=== PATIENT | male | born 1960 | race American Indian/Alaskan Native ===

== ENCOUNTER 2018-11-23 11:08 | Emergency (ER) | payer BC ==
--- NOTE | 2018-11-23 11:29 | Emergency Department Report ---
Blank Doc - Documentation Documentation: This is a 58-year-old male that presents with sore throat and URI symptoms. This initial assessment/diagnostic orders/clinical plan/treatment(s) is/are subject to change based on patient's health status, clinical progression and re- assessment by fellow clinical providers in the ED. Further treatment and workup at subsequent clinical providers discretion. Patient/guardians urged not to elope from the ED as their condition may be serious if not clinically assessed and managed. Initial orders include: 1- Patient sent to [facility] for further evaluation and treatment 2- CXR 3- strep swab
[2018-11-23 11:31] VITALS: BP 142/89
--- NOTE | 2018-11-23 12:07 | Emergency Department Report ---
Minor Respiratory - HPI Chief Complaint: Sore Throat Stated Complaint: SORE THROAT Time Seen by Provider: 11/23/18 11:28 Duration: 3 Days Pain Location: Throat, Chest Severity: moderate Minor Respiratory: Yes Sore Throat, Yes Able to Tolerate Fluids, Yes Cough, No Rhinorrhea, No Ear Pain, No Sick Contacts, No Hemoptysis, No Chest Pain, No Shortness of Breath, No Fever Other History: Patient is a pleasant 58-year-old male who comes to the ER complaining of "cough congestion and sore throat for several days. [id number] home remedies have not helped. On admission he is ambulatory and afebrile. He denies chest pain or shortness of breath. He states that his back hurts when he coughs ED Review of Systems ROS: Stated complaint: SORE THROAT Other details as noted in HPI Comment: All other systems reviewed and negative Constitutional: see HPI. denies: chills Eyes: as per HPI. denies: eye pain ENT: as per HPI, throat pain. denies: ear pain Respiratory: see HPI, cough Cardiovascular: denies: chest pain, palpitations, dyspnea on exertion, orthopnea Endocrine: denies: see HPI Gastrointestinal: denies: abdominal pain Musculoskeletal: as per HPI, back pain Skin: denies: rash Neurological: denies: weakness Psychiatric: denies: anxiety, depression Hematological/Lymphatic: denies: easy bleeding ED Past Medical Hx - Past Medical History Previous Medical History?: No - Surgical History Past Surgical History?: No - Family History Family history: no significant - Social History Smoking Status: Former Smoker Substance Use Type: Alcohol - Medications Home Medications: Home Medications Medication Instructions Recorded Confirmed Last Taken Type Azithromycin [Zithromax Z-VINCENT] 250 mg PO DAILY #6 tablet 11/23/18 Unknown Rx Benzonatate [Tessalon Perles] 100 mg PO Q12H PRN #20 capsule 11/23/18 Unknown Rx Cetirizine HCl [ZyrTEC] 10 mg PO DAILY #30 capsule 11/23/18 Unknown Rx Fluticasone [Flonase] 1 spray NS QDAY #1 bottle 11/23/18 Unknown Rx predniSONE [Deltasone] 20 mg PO DAILY #5 tablet 11/23/18 Unknown Rx Minor Respiratory Exam - Exam General: Vital signs noted. No distress. Alert and acting appropriately. HEENT: Yes Pharyngeal Erythema, Yes Moist Mucous Membranes, Yes Rhinorrhea, No Pharyngeal Exudates, No Conjuctival Injection, No Frontal Tenderness, No Maxillary Tenderness Ear: Neither TM Bulge, Neither TM Erythema, Neither EAC Pain, Neither EAC Discharge Neck: Yes Supple, No Adenopathy Lungs: Yes Good Air Exchange, Yes Cough, No Wheezes (b bases), No Ronchi, No Stridor, No Labored Respirations, No Retractions, No Use of Accessory Muscles, No Other Abnormal Lung Sounds Heart: Yes Regular, No Murmur Abdomen: Yes Normal Bowel Sounds, No Tenderness, No Peritoneal Signs Skin: No Rash, No Edema Neurologic: Alert and oriented, no deficits. Musculoskeletal: Unremarkable. ED Course Vital Signs 11/23/18 11:29 Temperature 98 F Pulse Rate 90 Respiratory 18 Rate Blood Pressure 142/89 O2 Sat by Pulse 97 Oximetry ED Medical Decision Making - Radiology Data Radiology results: report reviewed, image reviewed - Medical Decision Making xray nap duoneb and rx in ER dc home with dc plan of care VSS no cp no sob non smoker ambulatory taking PO Vital Signs 11/23/18 11:29 Temperature 98 F Pulse Rate 90 Respiratory 18 Rate Blood Pressure 142/89 O2 Sat by Pulse 97 Oximetry - Differential Diagnosis ro pna Critical care attestation.: If time is entered above; I have spent that time in minutes in the direct care of this critically ill patient, excluding procedure time. ED Disposition Clinical Impression: URTI (acute upper respiratory infection), Cough, Bronchitis Disposition: DC-01 TO HOME OR SELFCARE Is pt being admited?: No Does the pt Need Aspirin: No Condition: Stable Instructions: Acute Bronchitis (ED) Additional Instructions: REST HYDRATE WELL WITH WATER MEDS ORDERED FOLLOW UP PCP at the end of the week to be sure you are getting better MOTRIN OR TYLENOL FOR PAIN OR FEVER DIET TOLERATED ACTIVITY TOLERATED Prescriptions: predniSONE [Deltasone] 20 mg PO DAILY #5 tablet Fluticasone [Flonase] 1 spray NS QDAY #1 bottle Benzonatate [Tessalon Perles] 100 mg PO Q12H PRN #20 capsule PRN Reason: Cough Azithromycin [Zithromax Z-VINCENT] 250 mg PO DAILY #6 tablet Cetirizine HCl [ZyrTEC] 10 mg PO DAILY #30 capsule Referrals: CASH THURMAN MD [Primary Care Provider] - 3-5 Days Forms: Work/School Release Form(ED) Time of Disposition: 12:21
[2018-11-23] MEDS ORDERED: PROVENTIL IH ONE (12:09)
[2018-11-23] MEDS ORDERED: DECADRON IM ONE (12:10)
--- NOTE | 2018-11-23 13:08 | XRay Report ---
CHEST 2 VIEWS INDICATION: Cough. COMPARISON: None similar at this institution. FINDINGS: PA and lateral chest radiographs demonstrate slight exaggerated cardiomediastinal silhouette, though grossly within normal limits. Clear lungs. Mild mid to lower thoracic spine degenerative spurring. CONCLUSION: No acute chest process, as described. Thank you for the opportunity to participate in this patient's care.
== END 2018-11-23 13:16 | disposition home or self-care (01) ==
LOC: ED 11:08
DX: J40 Bronchitis, not specified as acute or chronic (principal); J06.9 Acute upper respiratory infection, unspecified; Z87.891 Personal history of nicotine dependence
CPT/HCPCS: 71046; 87116; 87430; 94640; 96372; 99284; J1100